=== PATIENT | female | born 1980 | race Caucasian/White ===

== ENCOUNTER 2017-06-30 04:34 | Emergency (ER) | payer OTHER ==
[2017-06-30] MEDS ORDERED: DIPHTH,PERTUSS(ACELL),TET VAC 0.5 ML VIAL IM ONE ×2 (05:07→05:08)
--- NOTE | 2017-06-30 05:08 | ERNOTE ---
Medical Problem HPI - Narrative Date of Service: 06/30/17 - General Chief Complaint: Laceration Time Seen by Provider: 06/30/17 04:49 Source: patient Exam Limitations: no limitations - Immun/Allergies/Home Medications Immunizations: IMMUNIZATION HX Immunizations Up to Date Yes History of Influenza Vaccine No Hx Pneumococcal Vaccination No Allergies/Adverse Reactions: Allergies No Known Allergies Allergy (Unverified 06/30/17 04:44) Home Medications: HOME MEDICATIONS ALPRAZolam [Xanax] 0.5 mg PO DAILY 06/30/17 [Last Taken Unknown] Levonorgestrel [Mirena] 1 each IY 06/30/17 [Last Taken Unknown] - History of Present History Narrative: 36 year old that is under arrest after kicking out a window in a house. Brought to the ED due a laceration at the foot. Admit to drinking ETOH tonight. On the second version of the story, the patient claims that a window was not broken but was slammed in a door. The reason she was arrested was for breaking into her ex-boyfriend's house and assaulting people. Date (Duration): 06/30/17 Time (Timing): 04:53 Timing: constant Severity: mild Modifying Factors - (Improves): Present: other - none Modifying Factors - (Worsens): Present: other - none Review of Systems - Review of Systems Constitutional: Present: no symptoms reported EYE: Present: no symptoms reported ENT: Present: no symptoms reported Respiratory: Present: no symptoms reported Cardiology: Present: no symptoms reported Gastrointestinal/Abdominal: Present: no symptoms reported Genitourinary: Present: no symptoms reported Musculoskeletal: Present: no symptoms reported Skin: Present: no symptoms reported Neurological: Present: no symptoms reported Endocrine: Present: no symptoms reported Hematologic/Lymphatic: Present: no symptoms reported - Patient's Past Medical History Patient History - Medical: Anxiety, Depression Patient History - Cardiac/Respiratory: No pertinent hx Patient History - Cancer: No Hx of Cancer Patient History - Surgical Procedures: Other, Orthopedic Patient History - Other: None LMP (females 10-50): mirena - Social History Living Situations: parents Psych History: Hx of Anxiety, Hx of Depression Smoking Status: Current every day smoker Have you smoked in the past 12 months: Yes Do you dip or chew tobacco: No Alcohol Use: occasionally Drug Use: none - Immunizations Immunizations Up to Date: Yes Hx Pneumococcal Vaccination: No History of Influenza Vaccine: No Physical Exam - Physical Exam Narrative: Appears intoxicated. General Appearance: Present: no apparent distress Head Exam: Present: normal inspection Eye Exam: Normal inspection: bilateral Ears, Nose, Throat: Present: normal ENT inspection Neck: Present: normal inspection Respiratory: Present: no respiratory distress Cardiovascular/Chest: Present: regular rate, rhythm Gastrointestinal/Abdominal: Present: nondistended Back Exam: Present: normal inspection Extremity Exam: Present: other - Right foot: flap laceration at the lateral foot , that was about 1 cm in length. The wound was explored and found to be superficial and no foreign bodies. Neurological Exam: Present: alert, oriented Skin Exam: Present: normal color ED Progress - Vital Signs Patient's Vital Signs:: I have reviewed the patient's vital signs. Vital Signs: Vital Signs 06/30/17 04:36 Temperature 36.2 C L Pulse Rate 121 H Respiratory 16 Rate Blood Pressure 118/77 O2 Sat by Pulse 94 Oximetry - X-Ray X-Ray #1 X-Ray: foot Interpretation: Interp. by me X-ray Comments: no FB or fracture - Progress/Reassessment Chief Complaint: Laceration Progress:: Improved Progress Note-Subjective: 06/30/17 05:21 The wound was anesthetized with 1% lidocaine and explored. 06/30/17 05:24 The wound will be allowed to heal by secondary intention. Departure Clinical Impression: Foot laceration - Departure Disposition: Home self-care Condition: Good Instructions: Laceration Care, Adult, [id number] Print Language: Citizen Of [place] Additional Instructions: Keep the wound clean and dry until it is healed.
[2017-06-30 05:17] VITALS: BP 130/72
== END 2017-06-30 05:32 ==
LOC: ER 04:34
DX: S91.311A Laceration without foreign body, right foot, initial encounter (principal); Y28.9XXA Contact with unspecified sharp object, undetermined intent, initial encounter; Y92.009 Unspecified place in unspecified non-institutional (private) residence as the place of occurrence of the external cause; F41.8 Other specified anxiety disorders; F17.200 Nicotine dependence, unspecified, uncomplicated; Z23 Encounter for immunization